=== PATIENT | male | born 2000 | race Caucasian/White ===

== ENCOUNTER 2023-03-25 16:17 | Outpatient (AMB) | payer MEDICAID, SELFPAY ==
--- NOTE | 2023-03-25 16:16 | MHC.OFFVIS ---
Intake Intake Visit Reasons: Abscess chest wall Intake Note: This patient presents for an assessment for abscess on the chest wall. Patient c/o; abscess chest wall, was prescribed on round of abx doxycycline 100 m x2 daily for 7 days. Educational Technologist Required: No Accompanied by: Self / Same As Patient Allergies No Known Allergies Allergy (Verified 03/25/23 16:19) Medication List - Last Reconciled 03/25/23 by David Knapp MD doxycycline hyclate 100 mg PO BID HPI Abscess chest wall HPI Details 23-year-old male referred for a possible abscess. He says that he had this small lump on the anterior chest wall on the left for about a week now. He says that he was swollen yesterday so he went to his primary care physician. He was prescribed oral antibiotics. He says that this has decreased in size significantly since then. He denies any drainage. He says the pain and redness has improved. [facility] Medical History (Updated 03/25/23 @ 16:27 by David Knapp MD) Inflamed epidermoid cyst of skin Review of Systems Const Denies chills and Denies fever(s) Card Denies chest pain, Denies dyspnea and Denies dyspnea on exertion Resp Denies cough, Denies dyspnea and Denies dyspnea on exertion GI Denies hematochezia and Denies change in bowel habits Denies hematuria and Denies difficulty urinating Musc Denies back pain and Denies limited range of motion Neuro Denies focal weakness and Denies convulsions Psych Denies depression and Denies mood swings Physical Exam Const General: comfortable and no acute distress Orientation/consciousness: patient oriented x3 Neck Neck: Yes no lymphadenopathy Chest Other: Left anterior chest wall with a small area of induration, dry, nonfluctuant, about 1 cm in diameter, no discharge Resp Auscultation: clear to auscultation bilaterally Cardio Rhythm: regular rhythm GI Palpation (GI): Soft to palpation, nontender and no guarding Neuro General: patient oriented x3 Assessment & Plan Assessment & Plan (1) Inflamed epidermoid cyst of skin: Code(s): L72.3 - Sebaceous cyst Plan: He has what appears to be an inflamed epidermal cyst on the left anterior chest wall. He says that this has improved significantly since yesterday. Currently, there is no fluctuance and there is minimal induration. This does not appear cellulitic. I explained to him that this does not require I and D at this time. I had advised him to do warm compresses to the area. He is to complete his oral antibiotics. I did tell him that if this becomes more swollen again and becomes more tender and painful, he is welcome to come back to the office to be re-evaluated for possible I&D. Coding Level of Care Code New Pt Level 3 (63001) Diagnoses Inflamed epidermoid cyst of skin L72.3
== END 2023-03-25 16:23 | disposition home or self-care (01) ==
PROVIDERS: Referring Provider Emergency Medicine; Visit Provider Surgery
DX: L72.3 Sebaceous cyst (principal)
CPT/HCPCS: 99203

== ENCOUNTER 2023-04-13 11:39 | Outpatient (REF) | payer MEDICAID, SELFPAY ==
[2023-04-13 13:36] LABS: MANUAL DIFF FLAG NO
[2023-04-13 13:43] LABS: Basophils Absolute Auto 0.1 X10*3/uL (0.0-0.2); Basophils Percent Auto 0.8 % (0-2); Eosinophils Absolute Auto 0.1 X10*3/uL (0.0-0.4); Eosinophils Percent Auto 1.6 % (0-4); Hematocrit 48.9 % (42.0-52.0); Hemoglobin 15.9 g/dl (14.0-18.0); Imm Gran Abs Auto 0.02 X10*3/uL (0.00-0.03); Imm Gran Pct Auto 0.3 % (0.0-0.4); Lymphocytes Percent Auto 25.7 % (20-40); Mean Corpuscular HGB Conc 32.5 g/dl (31.0-36.0); Mean Corpuscular Hemoglobin 29.1 pg (27.0-33.0); Mean Corpuscular Volume 89.4 fL (80.0-98.0); Mean Platelet Volume 9.1 fL (9.4-12.4); Monocytes Absolute Auto 0.8 X10*3/uL (0.1-1.2); Monocytes Percent Auto 10.5 % (2-11); Neutrophils Absolute Auto 4.7 x10*3/uL (2.0-8.3); Neutrophils Percent Auto 61.1 % (45-73); Platelet Count 321 X10*3/uL (160-400); Red Blood Count 5.47 X10*6/uL (4.60-5.80); Red Cell Distribution Width 12.4 % (11.0-16.0); White Blood Count 7.7 X10*3/uL (4.8-10.8)
[2023-04-13 13:51] LABS: Cholesterol 182 mg/dL (<200); HDL Cholesterol 41 mg/dL (>40); LDL Cholesterol Calculated 126 mg/dL (<100); Triglycerides 75 mg/dL (<150)
[2023-04-13 13:53] LABS: Estimated Average Glucose 103 mg/dL; Hemoglobin A1c % 5.2 % (<6.0)
[2023-04-13 14:04] LABS: Alanine Aminotransferase 12 U/L (0-40); Albumin Level 4.4 g/dL (3.5-5.0); Alkaline Phosphatase 88 U/L (39-117); Anion Gap 10 (12-20); Aspartate Amino Transferase 14 U/L (5-37); Bilirubin Total 0.2 mg/dL (0.0-1.0); Blood Urea Nitrogen 13 mg/dL (9-16); Calcium 9.6 mg/dL (8.4-10.2); Carbon Dioxide 28 mmol/L (22-29); Chloride 107 mmol/L (96-108); Estimated Glomerular Filt Rate > 60; Glucose Random 103 mg/dL (60-115); Sodium 141 mmol/L (135-145); Total Protein 7.2 g/dL (6.5-8.0)
[2023-04-13 14:08] LABS: TSH reflex Free T4 1.19 uIU/mL (0.32-4.0)
[2023-04-13 14:21] LABS: Reflex LDLD? No
== END 2023-04-13 11:40 | disposition home or self-care (01) ==
LOC: HO.HHCL 11:39
PROVIDERS: Visit Provider Family Medicine
DX: I10 Essential (primary) hypertension (principal)
CPT/HCPCS: 36415; 80053; 80061; 83036; 84443; 85025

== ENCOUNTER 2023-10-07 12:48 | Outpatient (AMB) | payer SELFPAY ==
--- NOTE | 2023-10-07 12:51 | MHC.OFFVIS ---
Intake Vital Signs 10/07/23 13:02 Weight 140 lb BP 140/75 H Blood Pressure Location Rt brachial Position Sitting Pulse 86 Intake Visit Reasons: cyst on the Lt anterior chest wall Intake Note: This patient presents for an assessment for cyst on the left anterior chest wall. Patient c/o; cyst left anterior chest wall. 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 [facility] Medical History (Updated 03/25/23 @ 16:27 by David Knapp MD) Inflamed epidermoid cyst of skin Surgical History (Updated 10/07/23 @ 13:[address]) No pertinent past surgical history Physical Exam Vital Signs: Last Vital Signs Pulse 86 10/07/23 13:02 BP 140/75 H 10/07/23 13:02 Office Procedures Excision Details: He was placed supine on the table in the minor procedure area of the office. The cyst was noted as an induration on the left anterior chest wall medial to the nipple, about 2.5 cm long at its widest dimension. This area was prepped and draped. Lidocaine 1% was used for local anesthesia. I made an elliptical incision of the skin surrounding this cystic induration using a blade 15. This was carried down through the full-thickness of the skin and subcutaneous fat to excise this entire indurated area. The area excised was about 3 x 2.5 cm. I closed this incision with full-thickness nylon 3-0 simple interrupted sutures. Dressings were applied. The procedure was completed He tolerated procedure well. There were no immediate complications. He was given wound care instructions. He will be seen for follow-up in the office for removal sutures. 14084-[id number]/arms/legs 2.1-3cm Procedure code (CPT) selection complete Assessment & Plan Assessment & Plan (1) Inflamed epidermoid cyst of skin: Code(s): L72.3 - Sebaceous cyst Plan: Excision was done in the office under local anesthesia as described above. Coding Level of Care Code Procedure Only Diagnoses Inflamed epidermoid cyst of skin L72.3 CPT Codes Trunk/Arms/Legs - CPT: 08422-ffeyi/arms/legs 2.1-3cm ([id number])
[2023-10-07 13:02] VITALS: BP 140/75; PULSE 86
== END 2023-10-07 14:22 | disposition home or self-care (01) ==
PROVIDERS: Visit Provider Surgery
DX: L72.0 Epidermal cyst (principal)
CPT/HCPCS: 11402

== ENCOUNTER 2023-10-07 12:48 | Outpatient (REF) | payer OTHER, SELFPAY | END 2023-10-07 12:49 | disposition home or self-care (01) | LOC: HO.LNP 12:48 | PROVIDERS: Visit Provider Surgery | DX: L72.3 Sebaceous cyst (principal) | CPT/HCPCS: 11402; 88304 ==

== ENCOUNTER 2023-10-20 09:46 | Outpatient (AMB) | payer MEDICAID, SELFPAY ==
--- NOTE | 2023-10-20 10:04 | MHC.OFFVIS ---
Intake Intake Visit Reasons: s/p excision cyst on the Lt anterior chest wall Intake Note: This patient presents for a post-op assessment status post excision cyst on the Lt anterior chest wall. Pt c/o; reports no concerns at this time. 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 He is here for postop visit. He denies any complaints at this time. [facility] Medical History Inflamed epidermoid cyst of skin Surgical History History of removal of cyst (~10/07/23) Review of Systems Const Denies chills and Denies fever(s) Card Denies chest pain, Denies dyspnea and Denies dyspnea on exertion Resp Denies cough, Denies dyspnea and Denies dyspnea on exertion GI Denies hematochezia and Denies change in bowel habits Denies hematuria and Denies difficulty urinating Musc Denies back pain and Denies limited range of motion Neuro Denies focal weakness and Denies convulsions Psych Denies depression and Denies mood swings Physical Exam Const General: comfortable and no acute distress Chest Other: Excision site is well healed, sutures in place, no evidence of infection Assessment & Plan Assessment & Plan (1) Inflamed epidermoid cyst of skin: Code(s): L72.3 - Sebaceous cyst Plan: Status post excision. His path report shows an epidermal cyst. His incision is well healed. His sutures were removed. He can therefore follow up on a p.r.n. basis. Coding Level of Care Code Global (58369) Diagnoses Inflamed epidermoid cyst of skin L72.3
== END 2023-10-20 10:23 | disposition home or self-care (01) ==
PROVIDERS: Visit Provider Surgery
DX: L72.3 Sebaceous cyst (principal)
CPT/HCPCS: 99024

== ENCOUNTER → 2023-10-20 09:46 | Outpatient (BNVA) | payer OTHER, SELFPAY | PROVIDERS: Visit Provider Surgery | DX: L72.3 Sebaceous cyst (principal); Z48.02 Encounter for removal of sutures | CPT/HCPCS: 99212 ==